=== PATIENT | female | born 1970 | race Native Hawaiian/Other Pacific Islander ===

== ENCOUNTER 2017-08-25 08:24 | Outpatient (CLI) | payer BC | END 2017-08-25 22:13 | disposition home or self-care (01) | LOC: MRI 08:24 | DX: C71.9 Malignant neoplasm of brain, unspecified (principal); M25.511 Pain in right shoulder | CPT/HCPCS: 36415; 82565; 84520; A9576 ==

== ENCOUNTER 2018-01-15 08:01 | Outpatient (CLI) | payer BC | END 2018-01-15 19:45 | LOC: MRI 08:01 | DX: C71.9 Malignant neoplasm of brain, unspecified (principal) | CPT/HCPCS: A9576 ==

== ENCOUNTER 2018-02-26 10:57 | Outpatient (CLI) | payer BC | END 2018-02-26 22:16 | disposition home or self-care (01) | LOC: MRI 10:57 | DX: C71.9 Malignant neoplasm of brain, unspecified (principal) | CPT/HCPCS: 36415; 82565; 84520; A9576 ==

== ENCOUNTER 2018-05-25 09:35 | Outpatient (CLI) | payer OTHER | END 2018-05-25 22:58 | disposition home or self-care (01) | LOC: MRI 09:35 | DX: C71.9 Malignant neoplasm of brain, unspecified (principal) | CPT/HCPCS: A9576 ==

== ENCOUNTER 2018-07-16 09:25 | Outpatient (CLI) | payer OTHER | END 2018-07-16 23:19 | disposition home or self-care (01) | LOC: MAMMO 09:25 | DX: Z12.31 Encounter for screening mammogram for malignant neoplasm of breast (principal) ==

== ENCOUNTER 2018-09-08 10:58 | Outpatient (CLI) | payer OTHER | END 2018-09-08 19:21 | disposition home or self-care (01) | LOC: MAMMO 10:58 | DX: C71.9 Malignant neoplasm of brain, unspecified (principal); R92.8 Other abnormal and inconclusive findings on diagnostic imaging of breast ==

== ENCOUNTER 2018-11-05 09:44 | Outpatient (CLI) | payer OTHER | END 2018-11-05 21:46 | disposition home or self-care (01) | LOC: MRI 09:44 | DX: C71.9 Malignant neoplasm of brain, unspecified (principal) | CPT/HCPCS: 36415; 82565; 84520; A9576 ==